=== PATIENT | female | born 1940 | race Caucasian/White ===

== ENCOUNTER 2019-01-09 08:48 | Emergency (ER) | payer OTHER ==
[~2019-01-09] VITALS: Ht 167.6 cm; Wt 104.3 kg
[~2019-01-09 08:48] MED LIST: HYDCHL25 PO; LISI5 PO; METF500C PO; METO50ER PO; PIOG30 PO; Tylenol325 MG PO; Zofran Odt4 MG SL
[2019-01-09] MEDS ORDERED: LOSA25 PO (09:22)
[2019-01-09] MEDS ORDERED: OXYB5 PO (09:22)
[2019-01-09] MEDS ORDERED: GLIM2 PO (09:22)
[2019-01-09 10:29] LABS: BASOPHILS ABSOLUTE AUTO 0.04 K/mm3 (0.00-0.23); BASOPHILS PERCENT AUTO 1 % (0-2); EOSINOPHILS ABSOLUTE AUTO 0.05 K/mm3 (0.00-0.68); EOSINOPHILS PERCENT AUTO 1 % (0-6); Hematocrit 35.7 % (33.0-51.0); Hemoglobin 11.2 g/dL (11.5-16.0); IMMATURE GRAN ABSOLUTE AUTO 0.06 K/mm3 (0.00-0.10); IMMATURE GRAN PERCENT AUTO 1 % (0-1); LYMPHOCYTES ABSOLUTE AUTO 0.96 K/mm3 (0.84-5.20); LYMPHOCYTES PERCENT AUTO 12 % (21-46); MONOCYTES ABSOLUTE AUTO 0.25 K/mm3 (0.16-1.47); MONOCYTES PERCENT AUTO 3 % (4-13); Mean Corpuscular HGB 30.3 pg (26.0-34.0); Mean Corpuscular HGB Conc 31.4 g/dL (31.5-36.5); Mean Corpuscular Volume 97 fL (80-100); Mean Platelet Volume 9.9 fL (9.1-12.4); NEUTROPHILS ABSOLUTE AUTO 6.86 K/mm3 (1.96-9.15); NEUTROPHILS PERCENT AUTO 84 % (41-73); Platelet Count 266 K/mm3 (150-400); RDW Coefficient Variation 13.7 % (11.7-14.2); RDW Standard Deviation 48.9 fL (35.1-46.3); White Blood Cell Count 8.22 K/mm3 (4.00-11.30)
[2019-01-09 10:42] LABS: Albumin, Blood 3.7 g/dL (3.4-5.0); Albumin/Globulin Ratio 0.9 (0.8-1.8); Bilirubin, Total 0.5 mg/dL (0.1-1.0); Bun/Creatinine Ratio 17.8 (12.0-20.0); Calcium, Blood 8.7 mg/dL (8.5-10.1); Creatinine, Blood 1.97 mg/dL (0.40-1.00); Globulin, Blood 4.1 g/dL (2.2-4.0); Potassium, Blood 4.6 mmol/L (3.5-5.5); Total Protein, Blood 7.8 g/dL (6.4-8.2)
[2019-01-09] MEDS ORDERED: Mupirocin22 GM TOP (11:13)
== END 2019-01-09 11:51 | disposition home or self-care (01) ==
LOC: ER 08:48
PROVIDERS: Emergency Medicine
DX: E11.649 Type 2 diabetes mellitus with hypoglycemia without coma (principal); I10 Essential (primary) hypertension; Z79.84 Long term (current) use of oral hypoglycemic drugs; Z79.899 Other long term (current) drug therapy
CPT/HCPCS: 36415; 80053; 82947; 85025; 96374; 99284-25

== ENCOUNTER 2022-05-05 01:45 | Day surgery (SDC) | payer OTHER ==
[~2022-05-05 01:45] MED LIST changes: +GLIM2 PO; +LOSA25 PO; +Mupirocin22 GM TOP; +OXYB5 PO
== END 2022-05-10 23:32 | disposition home or self-care (01) ==
LOC: WOUND 01:45
DX: E11.621 Type 2 diabetes mellitus with foot ulcer (principal); L97.525 Non-pressure chronic ulcer of other part of left foot with muscle involvement without evidence of necrosis; L02.611 Cutaneous abscess of right foot; E11.42 Type 2 diabetes mellitus with diabetic polyneuropathy; I87.2 Venous insufficiency (chronic) (peripheral); E11.51 Type 2 diabetes mellitus with diabetic peripheral angiopathy without gangrene; I10 Essential (primary) hypertension
CPT/HCPCS: 87070; 87075; 87077; 87147; 87186; 87205; A9270

== ENCOUNTER 2022-05-17 08:00 | Day surgery (SDC) | payer OTHER | END 2022-05-17 23:59 | disposition home or self-care (01) | LOC: WOUND 08:00 | DX: E11.621 Type 2 diabetes mellitus with foot ulcer (principal); L97.515 Non-pressure chronic ulcer of other part of right foot with muscle involvement without evidence of necrosis; L97.512 Non-pressure chronic ulcer of other part of right foot with fat layer exposed; L02.611 Cutaneous abscess of right foot; E11.42 Type 2 diabetes mellitus with diabetic polyneuropathy; I87.2 Venous insufficiency (chronic) (peripheral); E11.51 Type 2 diabetes mellitus with diabetic peripheral angiopathy without gangrene; M79.671 Pain in right foot | CPT/HCPCS: A9270; G0463 ==

== ENCOUNTER 2022-06-01 01:31 | Day surgery (SDC) | payer OTHER | END 2022-06-01 23:00 | disposition home or self-care (01) | LOC: WOUND 01:31 | DX: E11.621 Type 2 diabetes mellitus with foot ulcer (principal); L97.515 Non-pressure chronic ulcer of other part of right foot with muscle involvement without evidence of necrosis; L97.512 Non-pressure chronic ulcer of other part of right foot with fat layer exposed; L97.525 Non-pressure chronic ulcer of other part of left foot with muscle involvement without evidence of necrosis; L02.611 Cutaneous abscess of right foot; E11.42 Type 2 diabetes mellitus with diabetic polyneuropathy; I87.2 Venous insufficiency (chronic) (peripheral); E11.51 Type 2 diabetes mellitus with diabetic peripheral angiopathy without gangrene; M79.671 Pain in right foot | CPT/HCPCS: A9270; G0463 ==

== ENCOUNTER 2022-06-08 05:17 | Day surgery (SDC) | payer OTHER | END 2022-06-08 23:59 | disposition home or self-care (01) | LOC: WOUND 05:17 | DX: E11.621 Type 2 diabetes mellitus with foot ulcer (principal); L97.525 Non-pressure chronic ulcer of other part of left foot with muscle involvement without evidence of necrosis; L02.611 Cutaneous abscess of right foot; E11.42 Type 2 diabetes mellitus with diabetic polyneuropathy; I87.2 Venous insufficiency (chronic) (peripheral); E11.51 Type 2 diabetes mellitus with diabetic peripheral angiopathy without gangrene; M79.671 Pain in right foot | CPT/HCPCS: 87070; 87075; 87077; 87147; 87186; 87205; A9270; G0463 ==

== ENCOUNTER → 2022-06-15 | Day surgery (SDC) | payer OTHER | LOC: WOUND 03:31 | DX: E11.621 Type 2 diabetes mellitus with foot ulcer (principal); L97.515 Non-pressure chronic ulcer of other part of right foot with muscle involvement without evidence of necrosis; L03.115 Cellulitis of right lower limb; B95.62 Methicillin resistant Staphylococcus aureus infection as the cause of diseases classified elsewhere; E11.42 Type 2 diabetes mellitus with diabetic polyneuropathy; E11.51 Type 2 diabetes mellitus with diabetic peripheral angiopathy without gangrene; I87.2 Venous insufficiency (chronic) (peripheral) | CPT/HCPCS: A9270; G0463 ==

== ENCOUNTER 2022-06-29 01:14 | Day surgery (SDC) | payer OTHER | END 2022-06-29 23:51 | disposition home or self-care (01) | LOC: WOUND 01:14 | DX: E11.621 Type 2 diabetes mellitus with foot ulcer (principal); L97.513 Non-pressure chronic ulcer of other part of right foot with necrosis of muscle; L97.512 Non-pressure chronic ulcer of other part of right foot with fat layer exposed; E11.42 Type 2 diabetes mellitus with diabetic polyneuropathy; E11.51 Type 2 diabetes mellitus with diabetic peripheral angiopathy without gangrene; I87.2 Venous insufficiency (chronic) (peripheral) | CPT/HCPCS: A9270; G0463 ==

== ENCOUNTER 2022-07-20 04:18 | Day surgery (SDC) | payer OTHER | END 2022-07-20 23:20 | disposition home or self-care (01) | LOC: WOUND 04:18 | DX: E11.52 Type 2 diabetes mellitus with diabetic peripheral angiopathy with gangrene (principal); L98.492 Non-pressure chronic ulcer of skin of other sites with fat layer exposed; I70.268 Atherosclerosis of native arteries of extremities with gangrene, other extremity; I82.811 Embolism and thrombosis of superficial veins of right lower extremity | CPT/HCPCS: A9270; G0463 ==

== ENCOUNTER 2022-08-10 01:52 | Day surgery (SDC) | payer OTHER | END 2022-08-10 23:11 | disposition home or self-care (01) | LOC: WOUND 01:52 | DX: E11.621 Type 2 diabetes mellitus with foot ulcer (principal); L97.513 Non-pressure chronic ulcer of other part of right foot with necrosis of muscle; L97.512 Non-pressure chronic ulcer of other part of right foot with fat layer exposed; E11.42 Type 2 diabetes mellitus with diabetic polyneuropathy; I87.2 Venous insufficiency (chronic) (peripheral); E11.51 Type 2 diabetes mellitus with diabetic peripheral angiopathy without gangrene | CPT/HCPCS: A9270 ==

== ENCOUNTER 2022-09-08 04:11 | Day surgery (SDC) | payer OTHER | END 2022-09-08 22:51 | disposition home or self-care (01) | LOC: WOUND 04:11 | DX: E11.621 Type 2 diabetes mellitus with foot ulcer (principal); L97.513 Non-pressure chronic ulcer of other part of right foot with necrosis of muscle; L97.512 Non-pressure chronic ulcer of other part of right foot with fat layer exposed; I87.2 Venous insufficiency (chronic) (peripheral); E11.51 Type 2 diabetes mellitus with diabetic peripheral angiopathy without gangrene; E11.42 Type 2 diabetes mellitus with diabetic polyneuropathy; M79.671 Pain in right foot; R60.0 Localized edema | CPT/HCPCS: G0463 ==

== ENCOUNTER 2022-09-29 02:26 | Day surgery (SDC) | payer OTHER | END 2022-09-29 23:39 | disposition home or self-care (01) | LOC: WOUND 02:26 | DX: E11.621 Type 2 diabetes mellitus with foot ulcer (principal); L97.513 Non-pressure chronic ulcer of other part of right foot with necrosis of muscle; L97.512 Non-pressure chronic ulcer of other part of right foot with fat layer exposed; E11.42 Type 2 diabetes mellitus with diabetic polyneuropathy; I87.2 Venous insufficiency (chronic) (peripheral); E11.51 Type 2 diabetes mellitus with diabetic peripheral angiopathy without gangrene; R60.0 Localized edema; M79.671 Pain in right foot; I10 Essential (primary) hypertension | CPT/HCPCS: A9270; G0463 ==

== ENCOUNTER 2022-10-08 00:46 | Day surgery (SDC) | payer OTHER | END 2022-10-08 23:11 | disposition home or self-care (01) | LOC: WOUND 00:46 | DX: E11.621 Type 2 diabetes mellitus with foot ulcer (principal); E11.42 Type 2 diabetes mellitus with diabetic polyneuropathy; E11.51 Type 2 diabetes mellitus with diabetic peripheral angiopathy without gangrene; L97.512 Non-pressure chronic ulcer of other part of right foot with fat layer exposed; L08.9 Local infection of the skin and subcutaneous tissue, unspecified | CPT/HCPCS: A9270; G0463 ==

== ENCOUNTER 2022-10-26 00:11 | Day surgery (SDC) | payer OTHER | END 2022-10-26 22:55 | disposition home or self-care (01) | LOC: WOUND 00:11 | DX: E11.621 Type 2 diabetes mellitus with foot ulcer (principal); L97.512 Non-pressure chronic ulcer of other part of right foot with fat layer exposed; L08.9 Local infection of the skin and subcutaneous tissue, unspecified; E11.42 Type 2 diabetes mellitus with diabetic polyneuropathy; I87.2 Venous insufficiency (chronic) (peripheral); E11.51 Type 2 diabetes mellitus with diabetic peripheral angiopathy without gangrene ==

== ENCOUNTER 2022-11-05 00:51 | Day surgery (SDC) | payer OTHER | END 2022-11-05 23:03 | disposition home or self-care (01) | LOC: WOUND 00:51 | DX: E11.621 Type 2 diabetes mellitus with foot ulcer (principal); E11.42 Type 2 diabetes mellitus with diabetic polyneuropathy; E11.51 Type 2 diabetes mellitus with diabetic peripheral angiopathy without gangrene; L97.513 Non-pressure chronic ulcer of other part of right foot with necrosis of muscle; I87.2 Venous insufficiency (chronic) (peripheral); I10 Essential (primary) hypertension; R60.0 Localized edema; M79.671 Pain in right foot | CPT/HCPCS: G0463 ==

== ENCOUNTER 2022-11-12 01:16 | Day surgery (SDC) | payer OTHER | END 2022-11-12 23:04 | disposition home or self-care (01) | LOC: WOUND 01:16 | DX: E11.621 Type 2 diabetes mellitus with foot ulcer (principal); I87.2 Venous insufficiency (chronic) (peripheral); L97.512 Non-pressure chronic ulcer of other part of right foot with fat layer exposed; E11.51 Type 2 diabetes mellitus with diabetic peripheral angiopathy without gangrene | CPT/HCPCS: A9270; G0463 ==

== ENCOUNTER 2022-11-19 01:41 | Day surgery (SDC) | payer OTHER | END 2022-11-20 23:29 | disposition home or self-care (01) | LOC: WOUND 01:41 | DX: E11.621 Type 2 diabetes mellitus with foot ulcer (principal); L97.512 Non-pressure chronic ulcer of other part of right foot with fat layer exposed; E11.40 Type 2 diabetes mellitus with diabetic neuropathy, unspecified; I10 Essential (primary) hypertension; I87.2 Venous insufficiency (chronic) (peripheral); E11.51 Type 2 diabetes mellitus with diabetic peripheral angiopathy without gangrene | CPT/HCPCS: A9270; G0463 ==

== ENCOUNTER 2022-12-09 02:09 | Day surgery (SDC) | payer OTHER | END 2022-12-09 22:38 | disposition home or self-care (01) | LOC: WOUND 02:09 | DX: E11.621 Type 2 diabetes mellitus with foot ulcer (principal); L97.515 Non-pressure chronic ulcer of other part of right foot with muscle involvement without evidence of necrosis; E11.622 Type 2 diabetes mellitus with other skin ulcer; L97.812 Non-pressure chronic ulcer of other part of right lower leg with fat layer exposed; I10 Essential (primary) hypertension; I87.2 Venous insufficiency (chronic) (peripheral); E11.51 Type 2 diabetes mellitus with diabetic peripheral angiopathy without gangrene; L97.512 Non-pressure chronic ulcer of other part of right foot with fat layer exposed; L97.513 Non-pressure chronic ulcer of other part of right foot with necrosis of muscle; R60.0 Localized edema; M79.671 Pain in right foot ==

== ENCOUNTER 2022-12-14 01:15 | Day surgery (SDC) | payer OTHER | END 2022-12-14 22:43 | disposition home or self-care (01) | LOC: WOUND 01:15 | DX: E11.621 Type 2 diabetes mellitus with foot ulcer (principal); L97.512 Non-pressure chronic ulcer of other part of right foot with fat layer exposed; I87.2 Venous insufficiency (chronic) (peripheral); I73.9 Peripheral vascular disease, unspecified | CPT/HCPCS: A9270 ==

== ENCOUNTER 2022-12-22 01:44 | Day surgery (SDC) | payer OTHER | END 2022-12-22 22:52 | disposition home or self-care (01) | LOC: WOUND 01:44 | DX: E11.621 Type 2 diabetes mellitus with foot ulcer (principal); L97.512 Non-pressure chronic ulcer of other part of right foot with fat layer exposed; L97.513 Non-pressure chronic ulcer of other part of right foot with necrosis of muscle; E11.40 Type 2 diabetes mellitus with diabetic neuropathy, unspecified; I10 Essential (primary) hypertension; E11.51 Type 2 diabetes mellitus with diabetic peripheral angiopathy without gangrene; R60.0 Localized edema | CPT/HCPCS: A9270 ==

== ENCOUNTER 2022-12-29 00:34 | Day surgery (SDC) | payer OTHER | END 2022-12-29 23:33 | disposition home or self-care (01) | LOC: WOUND 00:34 | DX: E11.621 Type 2 diabetes mellitus with foot ulcer (principal); L97.512 Non-pressure chronic ulcer of other part of right foot with fat layer exposed; E11.622 Type 2 diabetes mellitus with other skin ulcer; L97.812 Non-pressure chronic ulcer of other part of right lower leg with fat layer exposed; E11.42 Type 2 diabetes mellitus with diabetic polyneuropathy; I87.2 Venous insufficiency (chronic) (peripheral); E11.51 Type 2 diabetes mellitus with diabetic peripheral angiopathy without gangrene; I10 Essential (primary) hypertension ==

== ENCOUNTER 2023-01-04 01:07 | Day surgery (SDC) | payer OTHER | END 2023-01-04 22:49 | disposition home or self-care (01) | LOC: WOUND 01:07 | DX: E11.621 Type 2 diabetes mellitus with foot ulcer (principal); L97.519 Non-pressure chronic ulcer of other part of right foot with unspecified severity; E11.622 Type 2 diabetes mellitus with other skin ulcer; L97.819 Non-pressure chronic ulcer of other part of right lower leg with unspecified severity; I87.2 Venous insufficiency (chronic) (peripheral); I73.9 Peripheral vascular disease, unspecified; L97.512 Non-pressure chronic ulcer of other part of right foot with fat layer exposed; L97.513 Non-pressure chronic ulcer of other part of right foot with necrosis of muscle; R60.0 Localized edema; L03.116 Cellulitis of left lower limb; L97.222 Non-pressure chronic ulcer of left calf with fat layer exposed | CPT/HCPCS: G0463 ==

== ENCOUNTER 2023-01-13 03:37 | Day surgery (SDC) | payer OTHER | END 2023-01-13 22:38 | disposition home or self-care (01) | LOC: WOUND 03:37 | DX: Z09 Encounter for follow-up examination after completed treatment for conditions other than malignant neoplasm (principal); E11.51 Type 2 diabetes mellitus with diabetic peripheral angiopathy without gangrene | CPT/HCPCS: G0463 ==

== ENCOUNTER 2023-03-24 02:49 | Day surgery (SDC) | payer OTHER | END 2023-03-24 23:18 | disposition home or self-care (01) | LOC: WOUND 02:49 | DX: E11.621 Type 2 diabetes mellitus with foot ulcer (principal); L97.512 Non-pressure chronic ulcer of other part of right foot with fat layer exposed; E11.42 Type 2 diabetes mellitus with diabetic polyneuropathy; I87.2 Venous insufficiency (chronic) (peripheral); E11.51 Type 2 diabetes mellitus with diabetic peripheral angiopathy without gangrene; R60.0 Localized edema; I10 Essential (primary) hypertension; J45.909 Unspecified asthma, uncomplicated | CPT/HCPCS: G0463 ==

== ENCOUNTER 2023-08-26 04:40 | Day surgery (SDC) | payer OTHER ==
[~2023-08-26 04:40] MED LIST changes: +ACET325 PO; +BASAGLAR K100 UNIT/6 SC; +DOCUZEN 8.6-501 EACH PO; +DOXY100 PO; +ELIQUIS2.5 MG PO; +VISBIOME 112.51 EACH PO; +Vancomycin1 GM/2501 IV
[2023-08-26 09:17] VITALS: BP 144/59
[2023-08-26 09:51] LABS: Creatinine, Blood 1.95 mg/dL (0.40-1.00); Vancomycin, Trough 18.4 ug/mL (5.0-10.0)
== END 2023-08-26 11:00 | disposition home or self-care (01) ==
LOC: ATC 04:40
PROVIDERS: Internal Medicine
DX: A49.02 Methicillin resistant Staphylococcus aureus infection, unspecified site (principal); R78.81 Bacteremia; I12.9 Hypertensive chronic kidney disease with stage 1 through stage 4 chronic kidney disease, or unspecified chronic kidney disease; E11.22 Type 2 diabetes mellitus with diabetic chronic kidney disease; N18.30 Chronic kidney disease, stage 3 unspecified; J45.909 Unspecified asthma, uncomplicated; Z79.84 Long term (current) use of oral hypoglycemic drugs; Z79.899 Other long term (current) drug therapy
CPT/HCPCS: 80202; 82565; 96365; J3370

== ENCOUNTER 2023-08-27 01:12 | Day surgery (SDC) | payer OTHER ==
[2023-08-27 14:10] VITALS: BP 157/93
--- NOTE | 2023-08-27 14:28 | NUR ---
NO LAB DRAW ORDER FOR 08/27. LAST TROUGH DRAWN 08/25/23.
== END 2023-08-27 15:16 | disposition home or self-care (01) ==
LOC: ATC 01:12
DX: R78.81 Bacteremia (principal); A49.02 Methicillin resistant Staphylococcus aureus infection, unspecified site; Z72.0 Tobacco use; E11.9 Type 2 diabetes mellitus without complications; I10 Essential (primary) hypertension
CPT/HCPCS: 96365; J3370

== ENCOUNTER 2023-08-28 04:03 | Day surgery (SDC) | payer OTHER ==
[2023-08-28 14:04] VITALS: BP 136/48
== END 2023-08-28 14:55 | disposition home or self-care (01) ==
LOC: ATC 04:03
DX: R78.81 Bacteremia (principal); A49.02 Methicillin resistant Staphylococcus aureus infection, unspecified site; E11.9 Type 2 diabetes mellitus without complications; J45.909 Unspecified asthma, uncomplicated; Z79.84 Long term (current) use of oral hypoglycemic drugs; J96.01 Acute respiratory failure with hypoxia
CPT/HCPCS: 96365; J3370

== ENCOUNTER → 2023-09-09 | Outpatient (CLI) | payer OTHER ==
[2023-09-09 11:08] LABS: Protein/Creat Ratio, Ur Random 0.8
== END ==
LOC: LAB SHORT 08:15 → LAB 08:15
PROVIDERS: Internal Medicine Nephrology
DX: N18.32 Chronic kidney disease, stage 3b (principal)
CPT/HCPCS: 82570; 84156

== ENCOUNTER 2023-10-05 02:03 | Day surgery (SDC) | payer OTHER | END 2023-10-05 22:49 | disposition home or self-care (01) | LOC: WOUND 02:03 | DX: E11.622 Type 2 diabetes mellitus with other skin ulcer (principal); L97.822 Non-pressure chronic ulcer of other part of left lower leg with fat layer exposed; E11.621 Type 2 diabetes mellitus with foot ulcer; L97.512 Non-pressure chronic ulcer of other part of right foot with fat layer exposed; E11.40 Type 2 diabetes mellitus with diabetic neuropathy, unspecified; I10 Essential (primary) hypertension; I87.2 Venous insufficiency (chronic) (peripheral); I73.9 Peripheral vascular disease, unspecified | CPT/HCPCS: G0463 ==

== ENCOUNTER 2024-08-24 01:13 | Day surgery (SDC) | payer OTHER | END 2024-08-24 22:53 | disposition home or self-care (01) | LOC: WOUND 01:13 | DX: E11.621 Type 2 diabetes mellitus with foot ulcer (principal); L97.522 Non-pressure chronic ulcer of other part of left foot with fat layer exposed; E11.40 Type 2 diabetes mellitus with diabetic neuropathy, unspecified; E11.51 Type 2 diabetes mellitus with diabetic peripheral angiopathy without gangrene; E11.610 Type 2 diabetes mellitus with diabetic neuropathic arthropathy; I10 Essential (primary) hypertension; Z90.710 Acquired absence of both cervix and uterus | CPT/HCPCS: 87070; 87075; 87077; 87147; 87186; 87205; G0463 ==

== ENCOUNTER 2024-08-31 03:39 | Day surgery (SDC) | payer OTHER | END 2024-09-01 02:56 | disposition home or self-care (01) | LOC: WOUND 03:39 | DX: E11.621 Type 2 diabetes mellitus with foot ulcer (principal); L97.522 Non-pressure chronic ulcer of other part of left foot with fat layer exposed; E11.51 Type 2 diabetes mellitus with diabetic peripheral angiopathy without gangrene; E11.40 Type 2 diabetes mellitus with diabetic neuropathy, unspecified; I10 Essential (primary) hypertension; Z79.01 Long term (current) use of anticoagulants ==

== ENCOUNTER 2024-09-06 02:23 | Day surgery (SDC) | payer OTHER | END 2024-09-07 02:42 | disposition home or self-care (01) | LOC: WOUND 02:23 | DX: E11.621 Type 2 diabetes mellitus with foot ulcer (principal); L97.529 Non-pressure chronic ulcer of other part of left foot with unspecified severity; E11.40 Type 2 diabetes mellitus with diabetic neuropathy, unspecified; E11.51 Type 2 diabetes mellitus with diabetic peripheral angiopathy without gangrene ==

== ENCOUNTER 2024-09-13 02:08 | Day surgery (SDC) | payer OTHER | END 2024-09-13 22:49 | disposition home or self-care (01) | LOC: WOUND 02:08 | DX: E11.621 Type 2 diabetes mellitus with foot ulcer (principal); L97.522 Non-pressure chronic ulcer of other part of left foot with fat layer exposed; E11.40 Type 2 diabetes mellitus with diabetic neuropathy, unspecified; E11.51 Type 2 diabetes mellitus with diabetic peripheral angiopathy without gangrene; I10 Essential (primary) hypertension ==

== ENCOUNTER 2024-09-20 02:42 | Day surgery (SDC) | payer OTHER ==
[2024-09-20] MEDS ORDERED: Silver Nitr/Potassium Nitrate 1 EA APPL ONE (15:30)
== END 2024-09-20 23:18 | disposition home or self-care (01) ==
LOC: WOUND 02:42
DX: E11.621 Type 2 diabetes mellitus with foot ulcer (principal); L97.522 Non-pressure chronic ulcer of other part of left foot with fat layer exposed; E11.40 Type 2 diabetes mellitus with diabetic neuropathy, unspecified; E11.51 Type 2 diabetes mellitus with diabetic peripheral angiopathy without gangrene; I10 Essential (primary) hypertension; J45.909 Unspecified asthma, uncomplicated
CPT/HCPCS: 87070; 87075; 87077; 87147; 87186; 87205; A9270

== ENCOUNTER 2024-09-27 03:37 | Day surgery (SDC) | payer OTHER | END 2024-09-27 23:00 | disposition home or self-care (01) | LOC: WOUND 03:37 | DX: E11.621 Type 2 diabetes mellitus with foot ulcer (principal); L97.422 Non-pressure chronic ulcer of left heel and midfoot with fat layer exposed; E11.40 Type 2 diabetes mellitus with diabetic neuropathy, unspecified; E11.51 Type 2 diabetes mellitus with diabetic peripheral angiopathy without gangrene; I10 Essential (primary) hypertension ==

== ENCOUNTER 2024-10-04 01:57 | Day surgery (SDC) | payer OTHER | END 2024-10-04 23:00 | disposition home or self-care (01) | LOC: WOUND 01:57 | DX: E11.621 Type 2 diabetes mellitus with foot ulcer (principal); L97.522 Non-pressure chronic ulcer of other part of left foot with fat layer exposed; E11.40 Type 2 diabetes mellitus with diabetic neuropathy, unspecified; E11.51 Type 2 diabetes mellitus with diabetic peripheral angiopathy without gangrene | CPT/HCPCS: G0463 ==

== ENCOUNTER 2024-10-11 04:41 | Day surgery (SDC) | payer OTHER | END 2024-10-11 23:26 | disposition home or self-care (01) | LOC: WOUND 04:41 | DX: E11.621 Type 2 diabetes mellitus with foot ulcer (principal); L97.522 Non-pressure chronic ulcer of other part of left foot with fat layer exposed; S81.811D Laceration without foreign body, right lower leg, subsequent encounter; E11.51 Type 2 diabetes mellitus with diabetic peripheral angiopathy without gangrene; E11.40 Type 2 diabetes mellitus with diabetic neuropathy, unspecified; I10 Essential (primary) hypertension | CPT/HCPCS: G0463 ==

== ENCOUNTER 2024-11-01 03:11 | Day surgery (SDC) | payer OTHER | END 2024-11-01 23:00 | disposition home or self-care (01) | LOC: WOUND 03:11 | DX: E11.621 Type 2 diabetes mellitus with foot ulcer (principal); L97.522 Non-pressure chronic ulcer of other part of left foot with fat layer exposed; E11.622 Type 2 diabetes mellitus with other skin ulcer; E11.40 Type 2 diabetes mellitus with diabetic neuropathy, unspecified; E11.51 Type 2 diabetes mellitus with diabetic peripheral angiopathy without gangrene; I10 Essential (primary) hypertension | CPT/HCPCS: G0463 ==

== ENCOUNTER 2024-11-08 01:56 | Day surgery (SDC) | payer OTHER | END 2024-11-08 23:00 | disposition home or self-care (01) | LOC: WOUND 01:56 | DX: E11.621 Type 2 diabetes mellitus with foot ulcer (principal); L97.522 Non-pressure chronic ulcer of other part of left foot with fat layer exposed; L03.115 Cellulitis of right lower limb; E11.622 Type 2 diabetes mellitus with other skin ulcer; E11.40 Type 2 diabetes mellitus with diabetic neuropathy, unspecified; E11.51 Type 2 diabetes mellitus with diabetic peripheral angiopathy without gangrene; I10 Essential (primary) hypertension | CPT/HCPCS: A6213; G0463 ==

== ENCOUNTER 2024-11-16 08:34 | Day surgery (SDC) | payer OTHER | END 2024-11-16 23:00 | disposition home or self-care (01) | LOC: WOUND 08:34 | DX: E11.621 Type 2 diabetes mellitus with foot ulcer (principal); L97.522 Non-pressure chronic ulcer of other part of left foot with fat layer exposed; L89.893 Pressure ulcer of other site, stage 3; E11.622 Type 2 diabetes mellitus with other skin ulcer; E11.51 Type 2 diabetes mellitus with diabetic peripheral angiopathy without gangrene; E11.40 Type 2 diabetes mellitus with diabetic neuropathy, unspecified | CPT/HCPCS: G0463 ==

== ENCOUNTER 2024-11-27 03:35 | Day surgery (SDC) | payer OTHER | END 2024-11-27 23:00 | disposition home or self-care (01) | LOC: WOUND 03:35 | DX: E11.621 Type 2 diabetes mellitus with foot ulcer (principal); L97.522 Non-pressure chronic ulcer of other part of left foot with fat layer exposed; E11.622 Type 2 diabetes mellitus with other skin ulcer; E11.40 Type 2 diabetes mellitus with diabetic neuropathy, unspecified; E11.51 Type 2 diabetes mellitus with diabetic peripheral angiopathy without gangrene; I10 Essential (primary) hypertension | CPT/HCPCS: G0463 ==

== ENCOUNTER 2024-12-14 07:19 | Day surgery (SDC) | payer OTHER | END 2024-12-14 23:00 | disposition home or self-care (01) | LOC: WOUND 07:19 | DX: E11.621 Type 2 diabetes mellitus with foot ulcer (principal); L97.522 Non-pressure chronic ulcer of other part of left foot with fat layer exposed; E11.40 Type 2 diabetes mellitus with diabetic neuropathy, unspecified; E11.51 Type 2 diabetes mellitus with diabetic peripheral angiopathy without gangrene; I10 Essential (primary) hypertension ==

== ENCOUNTER 2024-12-21 04:43 | Day surgery (SDC) | payer OTHER | END 2024-12-21 23:00 | disposition home or self-care (01) | LOC: WOUND 04:43 | DX: E11.621 Type 2 diabetes mellitus with foot ulcer (principal); L97.522 Non-pressure chronic ulcer of other part of left foot with fat layer exposed; E11.40 Type 2 diabetes mellitus with diabetic neuropathy, unspecified; E11.622 Type 2 diabetes mellitus with other skin ulcer; E11.51 Type 2 diabetes mellitus with diabetic peripheral angiopathy without gangrene; I10 Essential (primary) hypertension ==

== ENCOUNTER 2024-12-27 01:45 | Day surgery (SDC) | payer OTHER | END 2024-12-27 23:00 | disposition home or self-care (01) | LOC: WOUND 01:45 | DX: E11.621 Type 2 diabetes mellitus with foot ulcer (principal); L97.522 Non-pressure chronic ulcer of other part of left foot with fat layer exposed; E11.40 Type 2 diabetes mellitus with diabetic neuropathy, unspecified; E11.51 Type 2 diabetes mellitus with diabetic peripheral angiopathy without gangrene; I10 Essential (primary) hypertension | CPT/HCPCS: A6213 ==

== ENCOUNTER 2025-01-03 05:34 | Day surgery (SDC) | payer OTHER ==
[2025-01-03] MEDS ORDERED: Silver Nitr/Potassium Nitrate 1 EA APPL ONE (14:54)
== END 2025-01-03 23:00 | disposition home or self-care (01) ==
LOC: WOUND 05:34
DX: E11.621 Type 2 diabetes mellitus with foot ulcer (principal); L97.522 Non-pressure chronic ulcer of other part of left foot with fat layer exposed; I10 Essential (primary) hypertension; E11.40 Type 2 diabetes mellitus with diabetic neuropathy, unspecified; E11.622 Type 2 diabetes mellitus with other skin ulcer; E11.51 Type 2 diabetes mellitus with diabetic peripheral angiopathy without gangrene
CPT/HCPCS: A6213; A9270

== ENCOUNTER 2025-01-17 02:35 | Day surgery (SDC) | payer OTHER | END 2025-01-17 23:00 | disposition home or self-care (01) | LOC: WOUND 02:35 | DX: E11.621 Type 2 diabetes mellitus with foot ulcer (principal); L97.522 Non-pressure chronic ulcer of other part of left foot with fat layer exposed; E11.51 Type 2 diabetes mellitus with diabetic peripheral angiopathy without gangrene; E11.40 Type 2 diabetes mellitus with diabetic neuropathy, unspecified; I10 Essential (primary) hypertension | CPT/HCPCS: A6213 ==

== ENCOUNTER 2025-01-24 00:59 | Day surgery (SDC) | payer OTHER | END 2025-01-24 23:00 | disposition home or self-care (01) | LOC: WOUND 00:59 | DX: E11.621 Type 2 diabetes mellitus with foot ulcer (principal); L97.522 Non-pressure chronic ulcer of other part of left foot with fat layer exposed; E11.40 Type 2 diabetes mellitus with diabetic neuropathy, unspecified; E11.51 Type 2 diabetes mellitus with diabetic peripheral angiopathy without gangrene; Z79.01 Long term (current) use of anticoagulants; Z79.4 Long term (current) use of insulin; Z79.84 Long term (current) use of oral hypoglycemic drugs; Z79.899 Other long term (current) drug therapy; Z79.2 Long term (current) use of antibiotics | CPT/HCPCS: A6213; G0463 ==

== ENCOUNTER 2025-01-31 02:27 | Day surgery (SDC) | payer OTHER | END 2025-01-31 23:00 | disposition home or self-care (01) | LOC: WOUND 02:27 | DX: E11.621 Type 2 diabetes mellitus with foot ulcer (principal); L97.522 Non-pressure chronic ulcer of other part of left foot with fat layer exposed; E11.40 Type 2 diabetes mellitus with diabetic neuropathy, unspecified; I10 Essential (primary) hypertension; E11.51 Type 2 diabetes mellitus with diabetic peripheral angiopathy without gangrene; E11.622 Type 2 diabetes mellitus with other skin ulcer | CPT/HCPCS: A6213 ==

== ENCOUNTER 2025-02-07 04:20 | Day surgery (SDC) | payer OTHER | END 2025-02-07 23:00 | disposition home or self-care (01) | LOC: WOUND 04:20 | DX: E11.621 Type 2 diabetes mellitus with foot ulcer (principal); L97.522 Non-pressure chronic ulcer of other part of left foot with fat layer exposed; E11.51 Type 2 diabetes mellitus with diabetic peripheral angiopathy without gangrene; E11.40 Type 2 diabetes mellitus with diabetic neuropathy, unspecified; I10 Essential (primary) hypertension | CPT/HCPCS: A6213; G0463 ==

== ENCOUNTER 2025-02-21 02:45 | Day surgery (SDC) | payer OTHER | END 2025-02-21 23:00 | disposition home or self-care (01) | LOC: WOUND 02:45 | DX: E11.621 Type 2 diabetes mellitus with foot ulcer (principal); L97.522 Non-pressure chronic ulcer of other part of left foot with fat layer exposed; E11.622 Type 2 diabetes mellitus with other skin ulcer; E11.40 Type 2 diabetes mellitus with diabetic neuropathy, unspecified; E11.51 Type 2 diabetes mellitus with diabetic peripheral angiopathy without gangrene | CPT/HCPCS: A6213 ==

== ENCOUNTER 2025-03-07 04:02 | Day surgery (SDC) | payer OTHER | END 2025-03-07 23:00 | disposition home or self-care (01) | LOC: WOUND 04:02 | DX: E11.621 Type 2 diabetes mellitus with foot ulcer (principal); L97.522 Non-pressure chronic ulcer of other part of left foot with fat layer exposed; E11.40 Type 2 diabetes mellitus with diabetic neuropathy, unspecified; E11.51 Type 2 diabetes mellitus with diabetic peripheral angiopathy without gangrene; I10 Essential (primary) hypertension | CPT/HCPCS: A6213 ==

== ENCOUNTER 2025-03-21 02:47 | Day surgery (SDC) | payer OTHER | END 2025-03-21 23:00 | disposition home or self-care (01) | LOC: WOUND 02:47 | DX: E11.621 Type 2 diabetes mellitus with foot ulcer (principal); L97.522 Non-pressure chronic ulcer of other part of left foot with fat layer exposed; E11.40 Type 2 diabetes mellitus with diabetic neuropathy, unspecified; E11.51 Type 2 diabetes mellitus with diabetic peripheral angiopathy without gangrene; A49.02 Methicillin resistant Staphylococcus aureus infection, unspecified site | CPT/HCPCS: 87070; 87077; 87147; 87186; 87205; A6213 ==

== ENCOUNTER 2025-04-04 01:20 | Day surgery (SDC) | payer OTHER | END 2025-04-04 23:00 | disposition home or self-care (01) | LOC: WOUND 01:20 | DX: E11.621 Type 2 diabetes mellitus with foot ulcer (principal); L97.522 Non-pressure chronic ulcer of other part of left foot with fat layer exposed; E11.622 Type 2 diabetes mellitus with other skin ulcer; E11.40 Type 2 diabetes mellitus with diabetic neuropathy, unspecified; E11.51 Type 2 diabetes mellitus with diabetic peripheral angiopathy without gangrene; I10 Essential (primary) hypertension | CPT/HCPCS: A6213 ==

== ENCOUNTER 2025-04-18 01:50 | Day surgery (SDC) | payer OTHER | END 2025-04-18 23:00 | disposition home or self-care (01) | LOC: WOUND 01:50 | DX: E11.621 Type 2 diabetes mellitus with foot ulcer (principal); L97.522 Non-pressure chronic ulcer of other part of left foot with fat layer exposed; E11.622 Type 2 diabetes mellitus with other skin ulcer; E11.40 Type 2 diabetes mellitus with diabetic neuropathy, unspecified; E11.51 Type 2 diabetes mellitus with diabetic peripheral angiopathy without gangrene; I10 Essential (primary) hypertension | CPT/HCPCS: A6213; G0463 ==

== ENCOUNTER 2025-06-06 01:33 | Day surgery (SDC) | payer OTHER | END 2025-06-06 23:00 | disposition home or self-care (01) | LOC: WOUND 01:33 | DX: E11.621 Type 2 diabetes mellitus with foot ulcer (principal); L97.522 Non-pressure chronic ulcer of other part of left foot with fat layer exposed; E11.622 Type 2 diabetes mellitus with other skin ulcer; E11.40 Type 2 diabetes mellitus with diabetic neuropathy, unspecified; E11.51 Type 2 diabetes mellitus with diabetic peripheral angiopathy without gangrene; I10 Essential (primary) hypertension | CPT/HCPCS: A6213 ==

== ENCOUNTER 2025-06-20 03:34 | Day surgery (SDC) | payer OTHER | END 2025-06-20 23:00 | disposition home or self-care (01) | LOC: WOUND 03:34 | DX: E11.621 Type 2 diabetes mellitus with foot ulcer (principal); L97.522 Non-pressure chronic ulcer of other part of left foot with fat layer exposed; E11.40 Type 2 diabetes mellitus with diabetic neuropathy, unspecified; E11.51 Type 2 diabetes mellitus with diabetic peripheral angiopathy without gangrene | CPT/HCPCS: 87070; 87075; 87077; 87186; 87205; A6213 ==

== ENCOUNTER 2025-07-04 01:55 | Day surgery (SDC) | payer OTHER | END 2025-07-04 23:00 | disposition home or self-care (01) | LOC: WOUND 01:55 | DX: E11.621 Type 2 diabetes mellitus with foot ulcer (principal); L97.522 Non-pressure chronic ulcer of other part of left foot with fat layer exposed; E11.51 Type 2 diabetes mellitus with diabetic peripheral angiopathy without gangrene; E11.40 Type 2 diabetes mellitus with diabetic neuropathy, unspecified; I10 Essential (primary) hypertension | CPT/HCPCS: A6213 ==

== ENCOUNTER 2025-07-18 02:21 | Day surgery (SDC) | payer OTHER | END 2025-07-18 23:00 | disposition home or self-care (01) | LOC: WOUND 02:21 | DX: E11.621 Type 2 diabetes mellitus with foot ulcer (principal); L97.522 Non-pressure chronic ulcer of other part of left foot with fat layer exposed; E11.51 Type 2 diabetes mellitus with diabetic peripheral angiopathy without gangrene; E11.40 Type 2 diabetes mellitus with diabetic neuropathy, unspecified; I10 Essential (primary) hypertension | CPT/HCPCS: A6213 ==

== ENCOUNTER 2025-07-20 18:48 | Inpatient (IN) | payer OTHER ==
[~2025-07-20] VITALS: Ht 172.7 cm; Wt 93.3 kg
[2025-07-20 19:26] LABS: BASOPHILS ABSOLUTE AUTO 0.06 K/mm3 (0.00-0.23); BASOPHILS PERCENT AUTO 1 % (0-2); EOSINOPHILS ABSOLUTE AUTO 0.06 K/mm3 (0.00-0.68); EOSINOPHILS PERCENT AUTO 1 % (0-6); Hematocrit 44.9 % (33.0-51.0); Hemoglobin 14.6 g/dL (11.5-16.0); IMMATURE GRAN ABSOLUTE AUTO 0.07 K/mm3 (0.00-0.10); IMMATURE GRAN PERCENT AUTO 1 % (0-1); LYMPHOCYTES ABSOLUTE AUTO 1.50 K/mm3 (0.84-5.20); LYMPHOCYTES PERCENT AUTO 11 % (21-46); MONOCYTES ABSOLUTE AUTO 0.57 K/mm3 (0.16-1.47); MONOCYTES PERCENT AUTO 4 % (4-13); Mean Corpuscular HGB Conc 32.5 g/dL (31.5-36.5); Mean Corpuscular Volume 97 fL (80-100); NEUTROPHILS ABSOLUTE AUTO 11.00 K/mm3 (1.96-9.15); NEUTROPHILS PERCENT AUTO 83 % (41-73); NRBC ABSOLUTE 0.00 K/mm3 (0.00-0.02); NRBC Auto 0.0 /100 WBC (0.0-0.2); Platelet Count 243 K/mm3 (150-400); RDW Coefficient Variation 13.2 % (11.7-14.2); RDW Standard Deviation 47.1 fL (35.1-46.3)
[2025-07-20 19:28] LABS: Alanine Aminotransfer (ALT/SGP 18.0 U/L (12-78); Albumin, Blood 3.3 g/dL (3.4-5.0); Albumin/Globulin Ratio 0.8 (0.8-1.8); Anion Gap 11.0 mmol/L (3-11); Aspartate Aminotrans (AST/SGOT 20.0 U/L (12-37); Bilirubin, Total 0.6 mg/dL (0.1-1.0); Blood Urea Nitrogen 47.0 mg/dL (8-24); CO2, Blood 21.0 mmol/L (21-32); Calcium, Blood 8.9 mg/dL (8.5-10.1); Chloride, Blood 106.0 mmol/L (98-108); Creatinine, Blood 1.68 mg/dL (0.40-1.00); Globulin, Blood 4.1 g/dL (2.2-4.0); Glucose, Blood 300.0 mg/dL (70-99); Potassium, Blood 5.1 mmol/L (3.5-5.5); Prothrombin Time Results 13.8 Sec (9.7-11.5); Sodium, Blood 133.0 mmol/L (136-145); Total Protein, Blood 7.4 g/dL (6.4-8.2)
[2025-07-20] MEDS ORDERED: LOSA50 PO (19:28)
[2025-07-20] MEDS ORDERED: FARXIGA5 MG PO (19:28)
[2025-07-20] MEDS ORDERED: CEPH500 PO (19:29)
[2025-07-20] MEDS ORDERED: XARELTO20 MG PO (19:29)
[2025-07-20] MEDS ORDERED: METO50 PO (19:29)
[2025-07-20] MEDS ORDERED: MACROBID 100 M100 MG PO (19:30)
[2025-07-20] MEDS ORDERED: FURO20 PO (19:31)
[2025-07-20] MEDS ORDERED: Labetalol HCL 5 MG/ML 4ML Injection (Single Dose) IV ONE ×2 (20:30→21:05)
[2025-07-20 20:32] LABS: Source, Urine Foley catheter
[2025-07-20 20:37] LABS: Bilirubin, Urine Neg (Neg); Color, Urine Yellow (P-Yellow); Glucose Qualitative, Urine 3+ (Neg); Ketones, Urine Neg (Neg); Leukocyte Esterase, Urine Neg (Neg); Protein, Urine 3+ (Neg); Specific Gravity, Urine 1.020 (1.003-1.022); Urobilinogen, Urine NORM (Normal)
[2025-07-20 21:01] LABS: Red Blood Cells, Urine 0-2 /hpf (0-2)
[2025-07-20] MEDS ORDERED: Heparin Sodium,Porcine/0.5 NS 500 ML IV SCH (21:20)
[2025-07-21] VITALS (9 sets, daily range): BP systolic 149–188; BP diastolic 77–112
[2025-07-21] MEDS ORDERED: HydrALAZINE HCl 20 MG / ML 1ML Vial IV ONE (00:05)
[2025-07-21] MEDS ORDERED: NS 1,000 ML IV SCH (01:00)
--- NOTE | 2025-07-21 03:28 | NUR ---
ARRIVAL TO PCU ROOM 10 PT IS ALERT AND ABLE TO ANSWER QUESTION, HAS HAD A FEW ISSUES WITH WORD FINDING. UPON ARRIVAL SHE WAS SLIDE OVER TO PCU BED BY 5 STAFF MEMBERS MAINTAING C-SPIN ( PT IS IN A C-COLLAR). PT ARRIVED W/ MIRZA PLACED IN ER DRAINING TO GRAVITY, URINE IS YELLOW IN COLOR. SKIN CHECK NOTED L FOOT WOUND THAT PT EXPLAINS IS A DIABETIC ULCER, SHE SEES WOUND CARE CLINIC EVERY 2 WEEKS, AND SPOUSE PERFORMS DRESSSING CHANGES EVERY TWO DAYS. OTHER ISSUES NOTED IN ASSESMENT AND PICTURES PLACED IN CHART. PT WAS GIVEN PARTIAL BEDBATH AND CATH CARE WAS PROVIDED. SPOUSE WAS BEDSIDE FOR ASSESSMENT AND ASSISTED IS PROVIDING INFORMATION WHEN NEEDED. BP 160S SYSTOLIC AND SHE DENIES CHEST PAIN OR PRESSURE BUT DOES HOWEVER ENDOURSE A MACEDO THAT IS 10/10. LUZ ELENA QUINTANILLA MADE AWARE AND ORDERS PLACED. CALL LIGHT IN REACH, BED IN LOWEST POSTION.
[2025-07-21 04:25] LABS: Hematocrit 44.8 % (33.0-51.0); Hemoglobin 14.9 g/dL (11.5-16.0); Platelet Count 233 K/mm3 (150-400)
[2025-07-21] MEDS ORDERED: Dose Adjust by Pharmacy XX STA ×2 (04:51→13:50)
[2025-07-21] MEDS ORDERED: Insulin Regular 100 UNIT/ML 10ML Vial SC SCH (06:00)
--- NOTE | 2025-07-21 08:26 | NUR ---
C SPINE CLEARED AT [address] COCHRAN. C COLLAR REMOVED BY THIS RN. PT ABLE TO TELL THIS RN DATE, PLACE AND WHY SHE IS AT THE HOSPITAL. APPEARS TO BE MORE AWAKE AND ALERT THEN WHEN [facility] WAS PERFORMED AT SHIFT CHANGE. AT BEDSIDE. CALL LIGHT IN REACH.
[2025-07-21] MEDS ORDERED: Miconazole Nitrate 2% 85 GM PWD TOP SCH (09:00)
[2025-07-21] MEDS ORDERED: HydrALAZINE HCl 20 MG / ML 1ML Vial IV PRN (09:05)
--- NOTE | 2025-07-21 09:27 | NUR ---
PT TO MRI AT THIS TIME. HEPARIN GTT PAUSED. PHARMACY NOTIFIED.
--- NOTE | 2025-07-21 14:14 | NUR ---
HEPARIN DOSE CHANGE: HEPARIN DOSE CHANGED TO A RATE OF 22.5, 15IU/KG. VERIFIED WITH KANDI Vazquez RN
--- NOTE | 2025-07-21 17:51 | NUR ---
SHIFT SUMMARY: PT A&OX4. FOLLOWS COMMANDS. PT HAS NOT HAD ANY NEW NEURO SYMPTOMS THIS SHIFT. PT IS MORE AWAKE AND ALERT TOWARDS THE END OF THE SHIFT. CONTINUES ON HEPARIN GTT. DENIES ANY COMPLAINTS OF CP, PRESSURE, TIGHTNESS OR SOB. BLOOD PRESSURE HAS BEEN GETTING BETTER THROUGHOUT THE DAY. PT RECIEVED MRI TODAY. HAS BEEN TURNED Q2 HOURS. MIRZA REMAINS IN PLACE AND IS DRAINING CLEAR YELLOW URINE. FAMILY HAS BEEN AT BEDSIDE MOST OF THE SHIFT. PLAN FOR SPEECH EVAL TOMORROW. NO SIGNIFICANT EVENTS HAPPENED DURING THIS SHIFT. WILL CONTINUE TO CARE FOR PT TILL END OF SHIFT.
[2025-07-21] MEDS ORDERED: Clarify Drug Order XX ONE (20:35)
[2025-07-22] VITALS (7 sets, daily range): BP systolic 136–183; BP diastolic 61–96
[2025-07-22 02:14] LABS: Hematocrit 43.2 % (33.0-51.0); Hemoglobin 14.4 g/dL (11.5-16.0); Platelet Count 222 K/mm3 (150-400)
[2025-07-22] MEDS ORDERED: Clarify Drug Order XX ONE (02:35)
--- NOTE | 2025-07-22 06:42 | NUR ---
NOC SHIFT SUMMARY PT A+O X4, FOLLOWS COMMANDS. NO NEW NEURO SYMPTOMS THIS SHIFT (SEE [facility]). HEPARIN INFUSING PER EMAR, NO RATE CHANGES OVER NIGHT. DENIES CHEST PAIN OR PRESSURE. BP STABLE AND CONTINUES TO IMPROVE. Q2 TURNS AND ORAL CARE PROVIDED T/O THE NIGHT. MIRZA IN PLACE DRAINING TO GRAVITY, CATH CARE PROVIDED. REDDNESS IN GROIN IS IMPROVING FROM PREVIOUS SHIFT. DRESSING CHANGE TO L WRIST SKIN TEAR PROVIDED. PT WAS ABLE TO REST ON AND OFF IN BETWEEN CARES. BED IN LOW, CALL LIGHT IN REACH. CARE CONTINUES WILL REPORT TO ONCOMING RN.
[2025-07-22] MEDS ORDERED: Dose Adjust by Pharmacy XX STA (08:55)
--- NOTE | 2025-07-22 18:09 | NUR ---
SHIFT SUMMARY PT TRANSFERED FROM PCU 10 TO ROOM 363 THIS SHIFT. PT NOTED TO BE A&OX4 c APHASIA NOTED. PT WAS ABLE TO ANSWER QUESTIONS APPROPRIATE JUST TOOK SOME TIME TO FIND HER WORDS. PT NOTED TO BE BEDREST AND HAS BEEN REPOSITIONED Q2HR. PT CONT TO REMAIN NPO PLAN IS DO HAVE A BARRIUM SWOLLOW TEST TOMORROW. ORAL CARE CONT TO REMAIN Q4HR. PT BG NOTED TO BE 202 AND RECIEVED 2UNITS OF INSULIN AT 1800. PT CONT WITH HEPRIN GTT. WILMA IN PLACE FOR INCONT.
--- NOTE | 2025-07-22 18:12 | NUR ---
SHIFT SUMMARY/TRASNFER PATIENT IS ALERT AND ORIENTED TO PERSON, PLACE, AND TIME, ABLE TO FOLLOW COMMANDS AND MAKE NEEDS KNOWN. PATIENT HAS SIGNIFICANT LEFT SIDED DEFICITS, SEE NIHSS FOR FURTHER DETAILS. TELE IN PLACE, A FIB 70'S-80'S, PATIENT DENIES CHEST PAIN OR PRESSURE. SPO2 >90% ON RA, WET COUGH PRESENT. MIRZA CATHETER REMOVED THIS SHIFT. HEPARIN DRIP INFUSING, SEE EMAR FOR DETAILS. DIABETIC ULCER PRESENT ON LEFT FOOT, PATIENT RECEIVING OUTPATIENT MANAGEMENT, DRESSING INTACT. REDNESS ON BILATERAL FEET AND COCCYX, MEPILEX IN PLACE. SPEECH THERAPY AND PHYSICAL THERAPY EVALUATIONS DONE TODAY, SEE CHART FOR RECOMMENDATIONS. PATIENT IS A LIFT TRANSFER. REPORT GIVEN TO [facility] FLOOR NURSE AT 1740. PATIENT TRANSFERRED VIA HOSPITAL BED TO MEDICAL FLOOR, S.
[2025-07-22] MEDS ORDERED: Morphine Sulfate 4 MG/1 ML Injection IV PRN (18:30)
--- NOTE | 2025-07-23 03:14 | NUR ---
SHIFT SUMMARY NO ACUTE EVENTS DURING THIS SHIFT. @HS FAMILY BY THE BEDSIDE. PT ABLE TO ANSWER QUESTIONS APPROPRIATELY, DID REPORT PAIN, MEDICATED PER EMAR. DRESSING CHANGE TO LEFT HAND COMPLETED. Q2HR REPOSITIONING IN BED. HEPARIN MANAGED PER PHARMACY, INFUSING ORDERED. NPO, Q6 BG 207 AT MIDNIGHT. INSULIN ADMINISTERED ORDERED. TELE: SIMON @79. PLAN IS FOR BARIUM SWALLOW TODAY. BED AT THE LOWEST POSITION, CALL LIGHT W/I REACH.
[2025-07-23 03:33] VITALS: BP 173/93
[2025-07-23 03:36] LABS: BASOPHILS ABSOLUTE AUTO 0.04 K/mm3 (0.00-0.23); BASOPHILS PERCENT AUTO 0 % (0-2); EOSINOPHILS ABSOLUTE AUTO 0.06 K/mm3 (0.00-0.68); EOSINOPHILS PERCENT AUTO 1 % (0-6); Hematocrit 43.1 % (33.0-51.0); Hemoglobin 13.9 g/dL (11.5-16.0); IMMATURE GRAN ABSOLUTE AUTO 0.05 K/mm3 (0.00-0.10); IMMATURE GRAN PERCENT AUTO 1 % (0-1); LYMPHOCYTES ABSOLUTE AUTO 1.66 K/mm3 (0.84-5.20); LYMPHOCYTES PERCENT AUTO 17 % (21-46); MONOCYTES ABSOLUTE AUTO 0.77 K/mm3 (0.16-1.47); MONOCYTES PERCENT AUTO 8 % (4-13); Mean Corpuscular HGB Conc 32.3 g/dL (31.5-36.5); Mean Corpuscular Volume 100 fL (80-100); NEUTROPHILS ABSOLUTE AUTO 7.13 K/mm3 (1.96-9.15); NEUTROPHILS PERCENT AUTO 74 % (41-73); NRBC ABSOLUTE 0.00 K/mm3 (0.00-0.02); NRBC Auto 0.0 /100 WBC (0.0-0.2); Platelet Count 210 K/mm3 (150-400); RDW Coefficient Variation 13.6 % (11.7-14.2); RDW Standard Deviation 49.8 fL (35.1-46.3)
[2025-07-23 03:58] LABS: Anion Gap 13.0 mmol/L (3-11); Blood Urea Nitrogen 47.0 mg/dL (8-24); CO2, Blood 20.0 mmol/L (21-32); Calcium, Blood 8.6 mg/dL (8.5-10.1); Chloride, Blood 109.0 mmol/L (98-108); Creatinine, Blood 1.73 mg/dL (0.40-1.00); Glucose, Blood 181.0 mg/dL (70-99); Potassium, Blood 4.8 mmol/L (3.5-5.5); Sodium, Blood 137.0 mmol/L (136-145)
[2025-07-23] MEDS ORDERED: Clarify Drug Order XX ONE (04:40)
--- NOTE | 2025-07-23 13:54 | NUR ---
Pt. is mostly not responsive. Family including Spouse, Son and [id number] are at bedside. Facilitated a lengthy conversation with the family who is known to this policeman from the community. Pts. spouse had been a previous Pt. at this hospital. MARIA ISABEL functioned as primary spokeman for the family. MARIA ISABEL verbalizes that the family is feeling the weight of decisions that need to be made. MARIA ISABEL verbalized that the Pt. failed a swallow study, and that the family were concerned about whether a feeding tube would help the Pt. recover or only lengthen the Pts. life. Pastoral and palliative career guidance counselor is given. Family displayed evidence of understanding and agreement. Prayed for the Pt. Family verbalized gratitude for the spiritual care visit. Will remain availabel to Pt. and family.
--- NOTE | 2025-07-23 14:37 | NUR ---
PALATIVE CARE PALATIVE CARE MEETING WITH PT/FAMILY. CARE ONGOING.
--- NOTE | 2025-07-23 16:32 | NUR ---
MET WITH SPOUSE, SON, AND DIL AT PT'S BEDSIDE. THERAPUTIC LISTENING PROVIDED. SPOUSE, ALANIS, DISPLAYS SIGNS OF ANTICIPATORY GREIF AND SURVEY TECHNOLOGIST FATIGUE. HE ASKED QUESTIONS ABOUT NUTRITION, POSS PEG TUBE AND TUBE MANAGEMENT AT HOME. ALANIS STATES HE KNOWS WHAT [facility] WOULD WANT BUT HE ISN'T READY TO TALK ABOUT IT. MARIA ISABEL ASKED TO MEET WITH THIS PC RN OUTSIDE THE ROOM. MARIA ISABEL REPORTS PT WOULD NOT WANT AGRESSIVE MEASURES. SHE AND THE TWO SONS ANTICIPATE HOSPICE ON DISCHARGE. GOALS OF CARE MEETING WITH PROVIDER TOMORROW 07/24/25 @ 4370. CODE STATUS TO BE RE-ADDRESSED AT THAT MEETING. PC TO REMAIN AVAILABLE NEEDED.
[2025-07-23 17:41] VITALS: BP 152/90
--- NOTE | 2025-07-23 18:16 | NUR ---
COMFORT CARE FAMILY FILLED OUT POLST. DR CARLISLE CALLED. ORDERS RECEIVED. FAMILY AT BEDSIDE. CARE ONGOING.
--- NOTE | 2025-07-23 18:29 | NUR ---
NOTE PT ALERT. FAMILY MET AND FILLED OUT A COMFORT CARE POLST. DR CARLISLE CALLED. HEPARIN GTT STOPPED. SPOUCE AT BEDSIDE. FAMILY AT BEDSIDE. PT WILL BE GOING TO HER SONS HOUSE FOR HOSPICE CARE. PT NONVOID. BLADDER SCANNED FOR 680ML. ORDER FOR MIRZA RECEIVED. LEFT FA DRESSING CHANGED EARLY TODAY D/T BLEED THROUGH. CURRENTLY CD&I. REPOSTIONED FOR COMFORT. PINK FOAM PROTECTORS ON FEET. LEGS ELEVATED ON PILLOWS. DRESSINGS TO FEET CD&I. ORAL CARE DONE. GAVE HER DIET PEPSI PER SPONGE. CARE ONGOING.
[2025-07-23 20:37] VITALS: BP 165/59
--- NOTE | 2025-07-23 22:34 | NUR ---
INDWELLING MIRZA CATHETER INSERTED AT HS. PT TOLERATED WELL W/O ANY COMPLAINTS. CHARGE NURSE OTILIO BY THE BEDSIDE.
--- NOTE | 2025-07-23 22:45 | NUR ---
DRESSING CHANGE TO HEELS BILATERALLY COMPLETED AT BY THIS DIRECTOR POWER.
[2025-07-24 00:02] VITALS: BP 185/60
--- NOTE | 2025-07-24 03:34 | NUR ---
SHIFT SUMMARY @HS PT'S FAMILY BY THE BEDSIDE. PT IS DROWSY, AROUSABLE. ORIENTED X4. PT IS ABLE TO MAKE HER NEEDS KNOWN. INDWELLING MIRZA CATH INSERTED BY THIS MED ASST. PT TOLERATED WELL. MIRZA DRAINING TO GRAVIY, TEA COLOR URINE, OUTPUT>500MLS. PERICARE COMPLETED. NO BM DURING THIS SHIFT. HEEL PROTECTOR MEPILEX'S APPLIED BILATERALLY. PT C/O RIGHT SIDE NECK PAIN. MEDICATED PER EMAR. REPOSITIONED Q2HRS. BED AT THE LOWEST POSITION, CALL LIGHT W/I REACH. FREQUENT ROUNDING BY THE BEDSIDE.
[2025-07-24 04:43] VITALS: BP 171/93
[2025-07-24 04:54] LABS: Hematocrit 44.6 % (33.0-51.0); Hemoglobin 14.3 g/dL (11.5-16.0); Platelet Count 202 K/mm3 (150-400)
[2025-07-24 05:34] LABS: Anion Gap 15.0 mmol/L (3-11); Blood Urea Nitrogen 59.0 mg/dL (8-24); CO2, Blood 20.0 mmol/L (21-32); Calcium, Blood 8.9 mg/dL (8.5-10.1); Chloride, Blood 110.0 mmol/L (98-108); Creatinine, Blood 1.76 mg/dL (0.40-1.00); Glucose, Blood 203.0 mg/dL (70-99); Potassium, Blood 5.0 mmol/L (3.5-5.5); Sodium, Blood 140.0 mmol/L (136-145)
--- NOTE | 2025-07-24 07:55 | NUR ---
PALLIATIVE CARE ASSESSMENT FOR COMFORT. PT APPEARS MORE LETHARGIC THIS MORNING THAN YESTERDAY. SNORING WITH EYES OPEN. NOT RESPONDING TO NAME. PLAN: MEET WITH SPOUSE, ALANIS THIS MORNING FOR MORAL SUPPORT PENDING C MEETING THIS AFTERNOON. PRIMARY RN DENIES ANY ACUTE NEEDS AT THIS TIME.
--- NOTE | 2025-07-24 10:30 | NUR ---
SUPPORTIVE VISIT THIS PC RN NOTICED SPOUSE AND SON GERALD AT PT'S BEDSIDE. ALANIS STATED, "SHE IS BREATHING DIFFERENT THAN YESTERDAY. IT'S NOT GOOD IS IT?". THIS PC RN PROVIDED GENTLE EDUCATION ON EOL S/SX. HSBD REPORTS HE AND THE FAMILY TALKED LAST NIGHT 07/23 AND DECIDED TO TAKE PT HOME WITH [facility] SOON POSSIBLE. THIS PC RN EDUCATED WITH PT'S RAPID CHANGE IN ALERTNESS AND PERIODS OF APNEA, IF D/C HOME IS DELAYED BY A DAY OR TWO, SHE MAY NEED TO REMAIN IN THE HOSPITAL. WE DO NOT WANT TO DISRUPT THE PROCESS OF ONE THAT IS ACTIVELY PASSING. ALANIS AND SON GERALD REPORT PLAN IS TO D/C TO SON [facility] AND MARIA ISABEL [facility] HOME. THIS PC RN NOTIFIED CM OF REQUEST TO D/C WITH [facility] TODAY TO [facility]. CM TO CHECK ON HOSPICE AVAILABILITY.
[2025-07-24] MEDS ORDERED: Atropine Sulfate 1% Opth Soln 2ML BTL SL PRN (11:45)
[2025-07-24] MEDS ORDERED: Morphine Sulfate 20 MG/1ML 1 ML Oral Syringe PO PRN (11:50)
--- NOTE | 2025-07-24 12:30 | NUR ---
SON AND DIL ARRIVED AT HOSPITAL IN A STATE OF PANIC. THERAPUTIC LISTENING PROVIDED. PAT REPORTS THEY DO NOT HAVE EQUIPMENT AT HOME AND A SPACE HAS NOT BEEN CLEARED OUT FOR PT OF YET. THIS PC RN ADVISED SON GERALD AND SPOUSE ALANIS REPORTED BEING READY FOR D/C AND THINGS WERE SET UP. THIS PC RN DID NOT CONFIRM WITH [facility] PRIOR TO REPORTING TO CM FOR HOSPICE COORDINATION FOR SAME DAY ADMIT TODAY. APOLOGIZED TO FAMILY FOR NOT CALLING TO CONFIRM PRIOR. [facility] ARE RECEPTIVE TO APOLOGY AND READY TO MOVE FORWARD FOR D/C TODAY. Q&A RE: WHAT HOME HOSPICE LOOKS LIKE AND WHAT SUPPORTS ARE AVAILABLE. FAMILY EXPRESSES GRATITUDE FOR THE CARES PT HAS BEEN RECEIVING. PC TO REMAIN AVAILABLE NEEDED.
--- NOTE | 2025-07-24 17:34 | NUR ---
"Spiritual Care | Comfort Care Pt. is on comfort care and is mostly not resposive though the Pt. does display evidence of being responsive to direct questions. MARIA ISABEL is at bedside and welcomes my visit. Faciltated an update which revealed the Pt. will be going home on hospice this evening around 1800. Pastoral care is given to the DIL who had displayed courage during the decision process. Prayed with Pt. and actually had her respond with some nods to my prayer and my questions. On behalf of the family the DIL verbalized gratitude for the spiritual care visit."
== END 2025-07-24 19:00 | disposition hospice, home (50) | DRG 64 ==
LOC: ER 18:48 → MEDS 23:40 → PCU 07-21 00:06 → MEDS 07-21 00:06 → PCU 07-21 01:20 → MEDS 07-22 17:35
PROVIDERS: Emergency Medicine; Family Medicine; ADMIT Internal Medicine
PROC: 0T9B70Z Drainage of Bladder with Drainage Device, Via Natural or Artificial Opening (ICD-10-PCS; principal; 2025-07-20)
DX: I63.511 Cerebral infarction due to unspecified occlusion or stenosis of right middle cerebral artery (principal); G93.6 Cerebral edema; N39.0 Urinary tract infection, site not specified; I16.1 Hypertensive emergency; G81.94 Hemiplegia, unspecified affecting left nondominant side; Z66 Do not resuscitate; Z51.5 Encounter for palliative care; I48.91 Unspecified atrial fibrillation; R47.01 Aphasia; R13.10 Dysphagia, unspecified; I10 Essential (primary) hypertension; J45.909 Unspecified asthma, uncomplicated; R29.715 NIHSS score 15; E11.65 Type 2 diabetes mellitus with hyperglycemia; E66.9 Obesity, unspecified; Z68.32 Body mass index [BMI] 32.0-32.9, adult; R29.810 Facial weakness; Z79.01 Long term (current) use of anticoagulants; Z79.4 Long term (current) use of insulin; Z79.899 Other long term (current) drug therapy
CPT/HCPCS: 36415; 51702; 70450; 70496; 70498; 70551; 71045; 72125; 72170; 74230; 80048; 80053; 81001; 82947; 84484; 85014; 85018; 85025; 85049; 85520; 85610; 85730; 92610; 92611; 93005; 93010; 94660; 96365-59; 96366; 96375-59; 97110; 97112; 97162; 99285-25; A9270; J0360; J1644; J1815; J2270; L0160; Q9967